=== PATIENT | female | born 1955 | race Hispanic/Latino ===

== ENCOUNTER 2021-08-20 08:15 | Observation (INO) | payer MEDICARE ==
[2021-08-16 10:52] LABS: BASOPHILS % (AUTO) 0.7 % (0.0-5.0); EOSINOPHILS % (AUTO) 0.5 % (0.0-8.0); HEMATOCRIT 43.6 % (36-48); MEAN CORPUSCULAR HEMOGLOBIN 30.2 pg (27.0-33.0); MEAN CORPUSCULAR HGB CONC 32.8 g/dL (32.0-36.0); MONOCYTES % (AUTO) 6.9 % (3.0-13.0); NEUTROPHILS % (AUTO) 64.4 % (40.0-77.0); PLATELET COUNT (AUTO) 305 K/uL (130-400); RED BLOOD CELL COUNT(AUTO) 4.74 MIL/uL (4.00-5.50); WHITE BLOOD COUNT (AUTO) 6.1 K/uL (4.8-10.8)
[2021-08-16 11:14] LABS: CREATININE 0.9 mg/dL (0.5-1.5); POTASSIUM 4.9 mmol/L (3.5-5.1)
[2021-08-16 11:22] LABS: INR 0.95 (0.85-1.15); PROTHROMBIN TIME 10.4 SEC (9.6-11.6)
[2021-08-16 11:23] LABS: PARTIAL THROMBOPLASTIN TIME 27.3 SEC (26.3-35.5)
[2021-08-19 15:57] VITALS: BP 167/82
[~2021-08-20] VITALS: Ht 157.5 cm; Wt 86.4 kg
[2021-08-20] VITALS (19 sets, daily range): BP systolic 113–186; BP diastolic 64–91
[2021-08-20] MEDS: CEFAZOLIN SODIUM 1 GM VIAL IVP SCH ×2 (06:00→14:48)
[~2021-08-20 08:15] MED LIST: 0.9% NACL 250ML 250 ML IV ONE; OLME20TA22 PO; ROPIVICAINE 250MG+KETOROLAC 15MG+EPINEPHRINE 0.3+CLONIDINE 80 IV PRN; VANCOMYCIN KIT 1 GM/250 ML IV.KIT IV ONE
[2021-08-20] MEDS: LACTATED RINGERS 1000ML 1,000 ML IV SCH ×6 (09:31→21:05)
[2021-08-20] MEDS: LOSARTAN 100 MG TABLET PO SCH (10:43)
[2021-08-20] MEDS ORDERED: VANCOMYCIN 1G/250ML KIT 250 ML IV ONE (10:53)
[2021-08-20] MEDS ORDERED: VANCOMYCIN KIT 1 GM/250 ML IV.KIT IV ONE (11:00)
[2021-08-20] MEDS ORDERED: FENTANYL CITRATE PF 50 MCG/1 ML 2ML VIAL ONE ×3 (12:28→16:16)
[2021-08-20] MEDS ORDERED: ROCURONIUM 10MG/1ML SYR 10 MG/ML ML ONE (12:28)
[2021-08-20] MEDS ORDERED: MIDAZOLAM HCL 1 MG/ML 2ML VIAL ONE (12:28)
[2021-08-20] MEDS ORDERED: ROPIVACAINE 0.5% 5MG/ML 30ML IJ ONE (12:53)
[2021-08-20] MEDS ORDERED: TRANEXAMIC ACID 1000MG/10ML ONE (13:18)
[2021-08-20] MEDS ORDERED: DEXAMETHASONE SOD PHOSPHATE 10MG/ML 1ML VIAL ONE (14:29)
[2021-08-20] MEDS ORDERED: OXYCODONE HCL 5 MG TAB PO PRN (14:30)
[2021-08-20] MEDS ORDERED: HYDROCODONE/ACETAMINOPHEN 5/325 MG TAB PO PRN (14:30)
[2021-08-20] MEDS ORDERED: ONDANSETRON 4MG INJ ONE (14:30)
[2021-08-20] MEDS ORDERED: ONDANSETRON 4MG INJ IVP PRN (14:30)
[2021-08-20] MEDS: ACETAMINOPHEN 500 MG TABLET PO SCH ×2 (14:30→22:41)
[2021-08-20] MEDS ORDERED: MORPHINE 4 MG SYG IVP PRN (14:30)
[2021-08-20] MEDS ORDERED: MEPERIDINE-PF 25 MG/ML SYG ONE (17:59)
[2021-08-20] MEDS: TRAMADOL HCL 50 MG TABLET PO SCH ×2 (18:00→23:37)
[2021-08-20] MEDS: FAMOTIDINE 20MG TAB PO SCH (22:36)
[2021-08-20] MEDS: 0.9%NACL 1000ML 1,000 ML IV SCH (22:46)
[2021-08-21 04:22] VITALS: BP 121/72
[2021-08-21 05:03] LABS: HEMATOCRIT 35.4 % (36-48); MEAN CORPUSCULAR HEMOGLOBIN 29.6 pg (27.0-33.0); MEAN CORPUSCULAR HGB CONC 32.5 g/dL (32.0-36.0); RED BLOOD CELL COUNT(AUTO) 3.89 MIL/uL (4.00-5.50); RED CELL DISTRIBUTION WIDTH 12.8 % (11.0-15.5); WHITE BLOOD COUNT (AUTO) 9.8 K/uL (4.8-10.8)
[2021-08-21 05:10] LABS: POTASSIUM 4.9 mmol/L (3.5-5.1)
[2021-08-21] MEDS: TRAMADOL HCL 50 MG TABLET PO SCH ×3 (05:27→18:00)
[2021-08-21] MEDS: CELECOXIB 200 MG CAP PO SCH (05:27)
[2021-08-21] MEDS: ACETAMINOPHEN 500 MG TABLET PO SCH ×3 (05:28→22:28)
[2021-08-21] MEDS ORDERED: VANCOMYCIN 750MG VIAL IVPB ONE (05:30)
[2021-08-21] MEDS ORDERED: VANCOMYCIN 750MG 750 MG in 0.9% NACL 250ML 250 ML IVPB ONE (06:00)
[2021-08-21 08:00] VITALS: BP 132/71
[2021-08-21] MEDS ORDERED: ROPIVICAINE 250MG+KETOROLAC 15MG+EPINEPHRINE 0.3+CLONIDINE 80 IV PRN ×5 (08:00)
[2021-08-21] MEDS ORDERED: VANCOMYCIN 750MG VIAL ONE (08:36)
[2021-08-21] MEDS ORDERED: 0.9% NACL 250ML 250 ML ONE (08:37)
[2021-08-21] MEDS: FAMOTIDINE 20MG TAB PO SCH ×2 (08:41→21:19)
[2021-08-21] MEDS: LOSARTAN 100 MG TABLET PO SCH ×2 (08:41→08:45)
[2021-08-21] MEDS: ENOXAPARIN SODIUM 30 MG/0.3 ML SQ SCH (08:41)
[2021-08-21] MEDS: POLYETHYLENE GLYCOL 3350 17 GM POWD.PACK PO SCH (08:41)
[2021-08-21] MEDS: 0.9%NACL 1000ML 1,000 ML IV SCH (10:30)
[2021-08-21] MEDS ORDERED: 0.9% NACL 250ML IVPB ONE (11:00)
[2021-08-21 12:00] VITALS: BP 139/73
[2021-08-21 16:00] VITALS: BP 110/59
[2021-08-21 20:47] VITALS: BP 100/55
[2021-08-21 23:57] VITALS: BP 100/47
[2021-08-22 04:00] VITALS: BP 100/56
[2021-08-22] MEDS: TRAMADOL HCL 50 MG TABLET PO SCH ×4 (06:00→16:37)
[2021-08-22] MEDS: CELECOXIB 200 MG CAP PO SCH (06:06)
[2021-08-22] MEDS: ACETAMINOPHEN 500 MG TABLET PO SCH ×2 (06:11→13:32)
[2021-08-22 08:00] VITALS: BP 116/60
[2021-08-22] MEDS: LOSARTAN 100 MG TABLET PO SCH (09:00)
[2021-08-22] MEDS: POLYETHYLENE GLYCOL 3350 17 GM POWD.PACK PO SCH (09:16)
[2021-08-22] MEDS: FAMOTIDINE 20MG TAB PO SCH (09:17)
[2021-08-22] MEDS: ENOXAPARIN SODIUM 30 MG/0.3 ML SQ SCH (09:17)
[2021-08-22 11:56] VITALS: BP 116/57
[2021-08-22 16:00] VITALS: BP 124/66
[2021-08-22] MEDS ORDERED: BISACODYL 10 MG SUPP.RECT RC ONE (16:35)
[2021-08-23] MEDS ORDERED: BISACODYL 10 MG SUPP.RECT RC PRN (14:30)
== END 2021-08-22 19:35 | disposition home or self-care (01) ==
LOC: DAH 08:15 → DAHIP 08:16 → DAH 08:16 → 3DH 18:35
PROVIDERS: ADMIT Orthopaedic Surgery; ATTEND Orthopaedic Surgery
DX: M16.12 Unilateral primary osteoarthritis, left hip (principal); Z20.822 Contact with and (suspected) exposure to COVID-19; I10 Essential (primary) hypertension; E66.9 Obesity, unspecified; Z79.899 Other long term (current) drug therapy; Z98.890 Other specified postprocedural states; Z68.34 Body mass index [BMI] 34.0-34.9, adult
CPT/HCPCS: 27130; 36415 ×2; 72170 ×2; 73503; 80048 ×2; 85025; 85027; 85610; 85730; 87635; 87641; 93005; 96361 ×2; 96365; 96366 ×2; 96372 ×2; 97039 ×4; 97116 ×4; 97161; 97530 ×4; A4213; A4215; A4221; A4222; A4223; A4606; A4649 ×6; A4663; A4930 ×2; A5120; A6260 ×2; A9272; C1776; C9803; G0378 ×48; J0690; J1100; J1650 ×3; J2175; J2250; J2405; J2795; J3010 ×3; J3370 ×3; J3490; J7030; J7050 ×3; J7120